=== PATIENT | female | born 1970 | race Caucasian/White ===

== ENCOUNTER 2017-10-24 09:41 | Emergency (ER) | END 2017-10-24 11:10 | disposition home or self-care (01) ==

== ENCOUNTER 2018-05-22 14:30 | Emergency (ER) | payer MEDICAID ==
[~2018-05-22] VITALS: Wt 70.0 kg
[~2018-05-22 14:30] MED LIST: ACET500C5 PO; ALBU8.5H8 INH; AZIT250T PO; BENZ-6 PO; CETI10CA PO; D-ME118S6 PO; IBUP-1542 PO; NO NEW MEDS; ONDA4TAB8 PO; PREN-39; PREN1TAB12 PO; TRAM50TA2 PO
[2018-05-22 14:33] VITALS: BP 127/66; PULSE 79; RESP 20
[2018-05-22] MEDS ORDERED: PRED20TA PO (14:49)
[2018-05-22] MEDS ORDERED: ALBU18HF INHALATION (14:49)
[2018-05-22] MEDS ORDERED: IBUP-1542 PO (14:49)
--- NOTE | 2018-05-22 14:55 | ERD ---
ER Documentation Chief Complaint Chief Complaint COUGH AND CONGESTION WITH CHEST WALL PAIN FOR THE PAST 4 DAYS. NO FEVERS HPI Patient seen in ED 3. 47-year-old female since with cough and pleuritic anterior chest pain rating to the back for the last 3 days. She has a history of mild wheezing. Patient denies hemoptysis, shortness of breath, calf swelling, syncope. She denies any current medication. She denies sustained chest pain, fevers, vomiting, abdominal pain. ROS All systems reviewed and are negative except as per history of present illness. Medications Home Meds Active Scripts Ibuprofen* (Motrin*) 600 Mg Tab, 600 MG PO Q6, #20 TAB Prov:DAILY MCCOY MD 05/22/18 Albuterol Sulfate* (Ventolin HFA*) 18 Gm Hfa.aer.ad, 2 PUFF INHALATION Q4H, #1 INHALER Prov:DAILY MCCOY MD 05/22/18 Prednisone* (Prednisone*) 20 Mg Tab, 40 MG PO DAILY for 4 Days, TAB Prov:DAILY MCCOY MD 05/22/18 Albuterol Sulfate* (Proair HFA*) 8.5 Gm Hfa.aer.ad, 2 PUFF INH Q6H PRN for WHEEZING AND SOB, #1 INHALER Prov:CHICHO CRUZ PA-C 10/24/17 Cetirizine Hcl* (Zyrtec*) 10 Mg Capsule, 10 MG PO DAILY, #30 TAB.CHEW Prov:CHICHO CRUZ PA-C 10/24/17 Benzonatate* (Tessalon Perle*) 100 Mg Capsule, 100 MG PO Q8H PRN for COUGH, #30 CAP Prov:CHICHO CRUZ PA-C 10/24/17 Azithromycin* (Zithromax*) 250 Mg Tablet, 250 MG PO DAILY for 4 Days, TAB Prov:CHICHO CRUZ PA-C 10/24/17 Dextromethorphan Hb-Promethazine Hcl (Promethazine DM Syrup) 180 Ml Syrup, 5 ML PO Q6H PRN for COUGH, #4 OZ Prov:TAJ FRANKLIN 03/12/15 Ondansetron Hcl* (Zofran*) 4 Mg Tablet, 4 MG PO Q6H for NAUSEA AND/OR VOMITING, #30 TAB Prov:TAJ FRANKLIN C 03/12/15 Acetaminophen* (Tylophen*) 500 Mg Capsule, 2 CAP PO Q8H PRN for PAIN AND OR ELEVATED TEMP, #20 CAP Prov:TAJ FRANKLIN C 03/12/15 Tramadol HCl (Tramadol HCl) 50 Mg Tab, 50 MG PO Q4 PRN for PAIN, #20 TAB Prov:DAILY MCCOY MD 10/16/14 Ibuprofen* (Motrin*) 600 Mg Tab, 600 MG PO Q6, #20 TAB Prov:DAILY MCCOY MD 10/16/14 Reported Medications Vit/Fe Fumarate/Fa ( 1-1 Tablet) 1 Tab Tablet, 1 TAB PO DAILY 01/31/12 Vits W-Ca,Fe,Fa(<1MG) ( Vitamins) 1 Tab Tablet, TID 07/31/11 [No New Meds] No Conflict Check 11/16/10 Allergies Allergies: Coded Allergies: No Known Allergies (Verified Allergy, Mild, 12/17/13) PMhx/Soc History of Surgery: No Anesthesia Reaction: No Hx Neurological Disorder: No Hx Respiratory Disorders: No Hx Cardiac Disorders: No Hx Psychiatric Problems: No Hx Miscellaneous Medical Probl: Yes (GASTRITIS ) Hx Alcohol Use: No Hx Substance Use: No Hx Tobacco Use: No FmHx Family History: No diabetes, No coronary disease, No other Physical Exam Vitals Vital Signs Date Temp Pulse Resp B/P (MAP) Pulse Ox O2 O2 Flow FiO2 Time Delivery Rate 05/22/18 98.9 79 20 127/66 98 14:33 (86) Physical Exam Const: No acute distress Head: Atraumatic Eyes: Normal Conjunctiva ENT: Normal External Ears, Nose and Mouth. TMs and oropharynx normal. Neck: Full range of motion. No meningismus. Resp: Clear to auscultation bilaterally. Minimal forced wheeze. No rales or retractions. Cardio: Regular rate and rhythm, no murmurs Abd: Soft, non tender, non distended. Normal bowel sounds Skin: No petechiae or rashes Back: No midline or flank tenderness Ext: No cyanosis, or edema Neur: Awake and alert Psych: Normal Mood and Affect Procedures/MDM Patient presents with URI symptoms with mild anterior pleuritic chest pain rating to the back. Patient is well-appearing. There is no evidence of hypoxemia, rest distress, signs of abdominal pain, symptoms to suggest cardiac chest pain. She has a history of mild wheezing. Will treat with short course of prednisone, Ventolin, primary care follow-up and return precautions as well as ibuprofen. The patient was stable with no new complaints during the ER course. Clinically, there is no current evidence to suggest meningitis, sepsis, acute abdomen, pneumonia, stroke, acute coronary syndrome, pulmonary embolism, aortic dissection or any other emergent condition appearing to require further evaluation or hospitalization. Patient counseled regarding my diagnostic impression and care plan. Prior to discharge all questions answered. Pt agrees with treatment plan and understands strict return precautions. Pt is instructed to follow up with primary care provider within 24-48 hours. Precautionary instructions provided including instructions to return to the ER if not improving or for any worsening or changing symptoms or concerns. Departure Diagnosis: Primary Impression: Cough Condition: Stable Patient Instructions: Uri, Viral W/ Wheezing (Adult) Referrals: NO PRIMARY,CARE PHYSICIAN (PCP) Additional Instructions: Probablamente un virus que dura 2-4 baez. cheque otro vez en el proximo holger para mas simptomas- vomito, dolor, jack, problemas con respirando, o con muro doctor primario. DAILY MCCOY MD May 22, 2018 14:55
== END 2018-05-22 14:55 | disposition home or self-care (01) ==
LOC: E/R 14:30
DX: R05 Cough (principal)
CPT/HCPCS: 99283